=== PATIENT | male | born 1975 | race Caucasian/White ===

== ENCOUNTER 2024-05-20 08:39 | Day surgery (SDC) | payer BC ==
[~2024-05-20] VITALS: Ht 190.5 cm; Wt 104.3 kg
[~2024-05-20 08:39] MED LIST: ALEVE220 M1 PO
[2024-05-20] MEDS ORDERED: LACTATED RINGER'S 1,000 ML IV ONE (08:43)
[2024-05-20 12:01] VITALS: BP 116/79
[2024-05-20] MEDS ORDERED: PROPOFOL 200 MG/20 ML VIAL IV ONE (14:08)
[2024-05-20] MEDS ORDERED: GLYCOPYRROLATE 0.2 MG/ML IV ONE (14:08)
[2024-05-20] MEDS ORDERED: LIDOCAINE HCL 2% 2ML SDV IV ONE (14:08)
== END 2024-05-20 11:50 | disposition home or self-care (01) | DRG 941 ==
LOC: ENDO 08:39
PROVIDERS: ATTEND Surgery
PROC: 0DBN0ZX Excision of Sigmoid Colon, Open Approach, Diagnostic (ICD-10-PCS; principal; 2024-05-20)
PROC: 3E0H8GC Introduction of Other Therapeutic Substance into Lower GI, Via Natural or Artificial Opening Endoscopic (ICD-10-PCS; 2024-05-20)
DX: Z12.11 Encounter for screening for malignant neoplasm of colon (principal); D12.5 Benign neoplasm of sigmoid colon; F17.290 Nicotine dependence, other tobacco product, uncomplicated; Z80.0 Family history of malignant neoplasm of digestive organs; Z01.818 Encounter for other preprocedural examination
CPT/HCPCS: J1596